=== PATIENT | male | born 1955 | race Caucasian/White ===

== ENCOUNTER 2019-10-27 10:10 | Outpatient (CLI) | payer OTHER ==
[~2019-10-27 10:10] MED LIST: No meds per pt.
[2019-10-27 13:17] LABS: CHLORIDE 106 mmol/L (98-107)
[2019-10-27 13:25] LABS: ALANINE AMINOTRANSFERASE 35 U/L (12-78); ALKALINE PHOSPHATASE 53 U/L (45-117); ANION GAP 5 mmol/L (5-15); BILIRUBIN,TOTAL 0.6 mg/dL (0.2-1.0); CALCIUM 8.6 mg/dL (8.5-10.1); CHOL/HDL RATIO 2.8; CHOLESTEROL, TOTAL 196 mg/dL (140-239); CREATININE 1.32 mg/dL (0.7-1.3); HDL CHOL % 35 % (26-37); HDL CHOLESTEROL (DIRECT) 69 mg/dL (40-60); LDL CHOLESTEROL,CALCULATED 113 mg/dL (54-169); LDL/HDL RATIO 1.6 (0.5-3.0); TOTAL PROTEIN 7.4 g/dL (6.4-8.2); TRIGLYCERIDES 72 mg/dL (50-200); VLDL CHOLESTEROL 14 mg/dL (0-25)
== END 2019-10-27 23:59 | disposition home or self-care (01) ==
LOC: CFH 10:10
PROVIDERS: ATTEND Internal Medicine Cardiovascular Disease
DX: I35.1 Nonrheumatic aortic (valve) insufficiency (principal); I48.91 Unspecified atrial fibrillation; G47.30 Sleep apnea, unspecified
CPT/HCPCS: 36415; 80053; 80061; 93306; 93356